=== PATIENT | male | born 1975 | race Caucasian/White ===

== ENCOUNTER → 2019-11-29 08:37 | Outpatient (CLI) | payer BC, SELFPAY ==
--- NOTE | ~2019-11-29 | XR_ITS ---
EXAMINATION: XR UGIAC wo kub EXAM DATE: 11/29/2019 09:16 INDICATION: Severe episodes of abdominal pain in middle of night. TECHNIQUE: Standard single and double contrast barium upper GI examination was performed. Fluoroscop y time 0.6 minutes, with DAP for this procedure was 2.3 Gycm2. There is no prior study for comparis on. FINDINGS: There is no esophageal stricture, diverticulum or mass identified. Small sliding gastroeso phageal hiatal hernia. The stomach has a normal appearance without evidence of mass lesion, ulceration or filling defect. T here is normal rugal fold pattern. The duodenum and duodenal sweep are normal in appearance. IMPRESSION: Small sliding gastroesophageal hiatal hernia. Reviewed, dictated and finalized at location B. OL FUNDRAISING DIRECTOR
== END ==
PROVIDERS: PCP Emergency Medicine; Visit Provider Emergency Medicine
DX: R10.9 Unspecified abdominal pain (principal); K21.9 Gastro-esophageal reflux disease without esophagitis; K44.9 Diaphragmatic hernia without obstruction or gangrene
CPT/HCPCS: 74246

== ENCOUNTER 2022-04-24 10:34 | Emergency (ER) | payer BC, SELFPAY ==
--- NOTE | 2022-04-24 10:37 | ED.URI ---
HPI - URI/Sore Throat General Chief Complaint: Upper Respiratory Infection Stated Complaint: cold/flu Time Seen by Provider: 04/24/22 10:45 Source: patient, RN notes reviewed and old records reviewed Mode of arrival: ambulatory Limitations: no limitations History of Present Illness HPI Narrative: 46-year-old male presents to the [facility] with complaints of sore throat, sinus congestion for 3 days. Reports taking a COVID test at home yesterday and day before, reports negative. Denies fevers. Denies chest pain or abdominal pain. Pertinent past history: asthma Onset (ago): day(s) (3) Consistency: constant Severity: mild Related Data Allergies Allergy/AdvReac Type Severity Reaction Status Date / Time ciprofloxacin [From Cipro] AdvReac Joint Pain Verified 04/24/22 11:00 Review of Systems Review of Systems: All systems reviewed & are unremarkable except as noted in HPI and below Constitutional: Constitutional: Reports no additional constitutional complaints, Denies chills and Denies fever(s) Eyes: Eyes: Reports no additional eye complaints ENT: Reports as per HPI and Reports sore throat Cardiovascular: Cardiovascular: Reports no additional cardiovascular complaints Respiratory: Respiratory: Reports no additional respiratory complaints Gastrointestinal: Gastrointestinal: Reports no additional gastrointestinal complaints Musculoskeletal: Musculoskeletal: Reports no additional musculoskeletal complaints Integumentary/Breasts: Skin/Breast: Reports system reviewed and no additional complaints, except as docu Neurologic: Reports system reviewed and no additional complaints, except as documented Psychiatric: Psychiatric: Reports no additional psychiatric complaints Allergic/Immunologic: Allergic/Immunologic: Reports no additional allergic/immunologic complaints PMFSH Past Medical History Medical History Asthma Finger fracture, left left 5th Hemorrhoid IBS (irritable bowel syndrome) Leg fracture, left Prostatitis Wrist fracture, left Surgical History Surgical History History of appendectomy Social History Social History Gender identity (if verbalized by the patient): Male Comments At the time of my signature, I reviewed and agree with the nursing past medical, surgical, social, and family history. There is no relevant family history pertinent to the patient complaint. Exam Const: General: no acute distress, alert and ill appearing acutely (mild) Nutritional Appearance: well nourished Orientation/consciousness: patient oriented x3 Limitations: no limitations HENMT: Head: normal to inspection Ears: external ears normal General nose exam: Normal external nose present Throat: tonsils normal, uvula midline, posterior oropharynx abnormal erythema; no edema and no exudates and no uvular edema Eyes: General: appearance normal, both eyes and all related structures Pupils: Equal, round and reactive pupils present EOM: EOMs intact bilaterally Neck: Neck: normal visual inspection, no lymphadenopathy and no meningeal signs Chest: Chest palpation & inspection: normal inspection of the chest Resp: Effort & Inspection: normal respiratory effort and no use of accessory muscles Auscultation: clear to auscultation bilaterally, no crackles, no rales, no rhonchi and no wheezes Cardio: Rate: regular rate Rhythm: regular rhythm Back/Spine/Pelvis: Cervical Spine: normal cervical lordosis Thoracic/Lumbar Spine: thoracic and lumbar spine normal to inspection Skin: General skin exam: normal color Rashes: no rashes Wounds: no wounds Neuro: General: patient oriented x3, moves all extremities, no meningeal signs and no focal motor deficits Cranial nerves: Yes Equal, round and reactive pupils present Speech: normal speech Gait exam (Neuro): Normal gait pres
[2022-04-24 10:45] VITALS: BP 116/83; PULSE 73; RESP 16; TEMP 36.9; O2SAT 99
== END 2022-04-24 11:25 | disposition home or self-care (01) ==
PROVIDERS: Emergency Provider Nurse Practitioner; PCP Emergency Medicine
DX: J02.9 Acute pharyngitis, unspecified (principal); Z20.822 Contact with and (suspected) exposure to COVID-19; J45.909 Unspecified asthma, uncomplicated
CPT/HCPCS: 87081; 87426; 87804; 87880; 99213; C9803; G0463

== ENCOUNTER 2022-05-19 19:48 | Emergency (ER) | payer BC, SELFPAY ==
--- NOTE | ~2022-05-19 | CT_ITS ---
EXAMINATION: CT abdomen pelvis wo con DATE: 05/19/2022 21:51 INDICATION: llq pain/left flank pain, hematuria TECHNIQUE: Computed tomography (CT) of the abdomen and pelvis was performed without intravenous contr ast. Automated exposure control and iterative reconstruction technique were employed. The dose-length product was 546.71 mGy-cm. COMPARISON: None. FINDINGS: Lower thorax: Unremarkable Liver: Normal. Biliary/Gallbladder: Cholelithiasis. No bile duct dilation. Pancreas: No mass or duct dilation. Spleen: Normal. Adrenals:No mass. Kidneys: Mild left perinephric stranding and periureteral stranding. Mild left hydronephrosis. GI tract: No small or large bowel dilation. Appendix not visualized. Extensive colonic diverticulosis . Short segment wall thickening and surrounding inflammatory change with an inflamed diverticulum at the junction of the descending colon and sigmoid colon. Mesentery/Peritoneum: No ascites, mass, or free air. Retroperitoneum: No mass. Pelvis: 2 mm distal left ureteral calculus. Mild bladder wall thickening likely on the basis of incom plete distention. Soft Tissues: Soft tissues and body wall unremarkable. Bones: No acute osseous finding. IMPRESSION: Acute uncomplicated diverticulitis. 2 mm distal left ureteral stone causing mild obstructive uropathy . Reviewed, dictated and finalized at location K. IMPRESSION: Acute uncomplicated diverticulitis. 2 mm distal left ureteral stone causing mil d obstructive uropathy.
[2022-05-19 20:05] VITALS: BP 151/93; PULSE 67; RESP 16; TEMP 36.7; O2SAT 100
[2022-05-19 20:17] LABS: Basophils Absolute Auto 0.1 K/mm3 (0.0-0.1); Basophils Percent Auto 0.6 % (0.2-1.2); Eosinophils Absolute Auto 0.7 K/mm3 (0-0.3); Eosinophils Percent Auto 8.3 % (0-4.4); Hematocrit 41.6 % (42.0-52.0); Hemoglobin 13.8 g/dL (14.0-18.0); Immature Granulocyte Absolute 0.02 K/mm3 (0.00-0.031); Immature Granulocyte Percent A 0.2 % (0-0.5); Lymphocytes Absolute Auto 2.78 K/mm3 (0.9-3.2); Lymphocytes Percent Auto 33.6 % (18.3-44.2); Mean Corpuscular HGB Conc 33.2 g/dl (32-36); Mean Corpuscular Hemoglobin 29.5 pg (26-34); Mean Corpuscular Volume 88.9 fl (80-100); Mean Platelet Volume 9.1 fl (7.4-10.4); Monocytes Absolute Auto 0.8 K/mm3 (0.1-0.6); Monocytes Percent Auto 9.1 % (2.6-8.5); Neutrophils Percent Auto 48.2 % (45.5-73.1); Platelet Count Result 270 k/mm3 (150-375); Red Blood Count 4.68 M/mm3 (4.6-6.20); Red Cell Distribution Width 13.1 % (11.5-14.5); White Blood Count 8.3 K/mm3 (4.5-10.0)
[2022-05-19 20:27] LABS: Alanine Aminotransferase 23 U/L (6-50); Albumin Level 4.4 g/dL (3.5-5.1); Alkaline Phosphatase 62 U/L (38-126); Anion Gap 12 mmol/L (8-16); Aspartate Amino Transferase 22 U/L (17-59); Bilirubin,Total 0.5 mg/dL (0.2-1.3); Blood Urea Nitrogen 17 mg/dL (9-20); Carbon Dioxide 24 mmol/L (22-30); Chloride 100 mmol/L (98-107); Estimated CRCL calculation 78 ml/min; Estimated Glomerular Filt Rate > 60; Glucose 116 mg/dL (65-110); Lipase 40 U/L (23-300); Potassium 3.8 mmol/L (3.4-5.0); Sodium 136 mmol/L (137-145)
[2022-05-19 20:49] LABS: Appearance Urine Clear (Clear); Bilirubin Urine Negative (Negative); Blood Urine 2+ (Negative); Color Urine Yellow (Yellow); Glucose Urine UA Negative (Negative); Ketones Urine Negative (Negative); Leukocyte Esterase Ur Negative LEU/UL (Negative); Nitrate Urine Negative (Negative); Protein Urine Negative (Negative); Urobilinogen Urine 0.2 mg/dL (<2.0)
[2022-05-19 20:52] LABS: Mucus Urine Rare /lpf; RBC Urine >75 /hpf (0-2); Squamous Epithelial Cell Urine Rare /hpf (Few); WBC Urine 0-3 /hpf
[2022-05-19 20:55] LABS: Add Urine Microscopic? YES
--- NOTE | 2022-05-19 21:43 | ED.ABDPAIN ---
HPI - Abdominal Pain General Chief Complaint: Abdominal Pain Stated Complaint: ABD pain on left side Time Seen by Provider: 05/19/22 21:32 History of Present Illness HPI narrative: Patient is a 43-year-old male w/ history of IBS, prostatitis here for evaluation of left sided abdominal pain for the past day. Patient states the pain is intermittent in nature, is severe, and he denies any known provoking factors. States when the pain is there, it is hard to find a comfortable position, and it takes his breath away. Pain began in his left flank and is now on his left lower abdomen. He had 2 episodes of vomiting nonbloody/nonbilious emesis, but denies any constipation. Also notes 2 loose stools today that were nonbloody and some blood in his urine. Denies fevers, chills, dysuria, urgency, chest pain or shortness of breath. Related Data Allergies Allergy/AdvReac Type Severity Reaction Status Date / Time ciprofloxacin [From Cipro] AdvReac Joint Pain Verified 05/19/22 21:34 Review of Systems Review of Systems: Gen.: Denies fevers or chills Eyes: Denies eye pain or visual change ENT: Denies congestion Respiratory: Denies shortness of breath or cough CV: Denies chest pain or palpitations GI: Reports left lower quadrant abdominal pain, nausea and vomiting. reports hematuria. Denies burning, urgency, frequency Musculoskeletal: Denies back pain or muscle pain Neuro: Denies numbness, tingling, weakness or focal weakness Skin: Denies rash Except as documented, all other systems reviewed and negative PMFSH Past Medical History Medical History Asthma Finger fracture, left left 5th Hemorrhoid IBS (irritable bowel syndrome) Leg fracture, left Prostatitis Wrist fracture, left Surgical History Surgical History History of appendectomy Social History Social History Gender identity (if verbalized by the patient): Male Exam Narrative: APPEARANCE: Well appearing, no pain in distress, well-nourished. Head: Normocephalic and atraumatic. EYES: PERRLA/EOMI, conjunctivae clear NOSE: No nasal drainage EARS: External ear normal in appearance THROAT: Oropharynx is clear. Mucous membranes are moist. NECK: Supple. No adenopathy, no masses. RESPIRATORY: Airway patent, respirations nonlabored. Clear to auscultation bilaterally, no rales, rhonchi, wheezing. CARDIOVASCULAR: Regular rate and rhythm without murmurs, rubs, or gallops. ABDOMINAL: mildly tender to palpation in LLQ. No CVA tenderness. Normoactive bowel sounds. Soft, nondistended. No rebound tenderness or guarding. MUSCULOSKELETAL: Extremities are warm and well-perfused. Moves all extremities well. No edema. NEURO: Normal speech. No focal neurologic deficits. SKIN: Skin is warm and dry. No rashes. PSYCHIATRIC: Normal affect/mood.. Course Vital Signs Vital signs: Vital Signs Temperature 98.1 F 05/19/22 20:05 Pulse Rate 67 05/19/22 20:05 Respiratory Rate 16 05/19/22 20:05 Blood Pressure 151/93 H 05/19/22 20:05 Pulse Oximetry 100 05/19/22 20:05 Oxygen Delivery Room Air 05/19/22 20:05 Temperature 98.1 F 05/19/22 20:05 Pulse Rate 68 05/19/22 22:36 Respiratory Rate 18 05/19/22 22:36 Blood Pressure 142/88 H 05/19/22 22:36 Pulse Oximetry 96 05/19/22 22:36 Oxygen Delivery Room Air 05/19/22 20:05 MDM - Abdominal Pain MDM Narrative Medical decision making narrative: 46-year-old male here for evaluation of left lower quadrant abdominal pain, nausea and vomiting over the past day. Here, he is slightly hypertensive, likely due to pain, vital signs otherwise normal. He is moderately tender in the left lower quadrant. Work-up significant for hematuria. No leukocytosis or elevated kidney function. CT scan with evidence of uncomplicated diverticulitis in addition
[2022-05-19] MEDS: MORPHINE SULFATE (*CRX) 4 MG/ML INJ IV PUSH (22:09)
[2022-05-19] MEDS: ONDANSETRON INJ 4 MG/2 ML VIAL IV PUSH (22:09)
[2022-05-19 22:36] VITALS: BP 142/88; PULSE 68; RESP 18; O2SAT 96
== END 2022-05-19 22:38 | disposition home or self-care (01) ==
PROVIDERS: Emergency Provider Emergency Medicine; PCP Emergency Medicine
DX: K57.92 Diverticulitis of intestine, part unspecified, without perforation or abscess without bleeding (principal); N13.2 Hydronephrosis with renal and ureteral calculous obstruction; J45.909 Unspecified asthma, uncomplicated; K58.9 Irritable bowel syndrome, unspecified; N41.9 Inflammatory disease of prostate, unspecified
CPT/HCPCS: 36415; 74176; 80053; 81001; 83690; 85025; 96374; 96375; 99284; J2270; J2405

== ENCOUNTER → 2023-01-07 07:47 | Outpatient (CLI) | payer BC, SELFPAY ==
--- NOTE | ~2023-01-07 | US_ITS ---
Limited Abdominal Sonogram: Real-time sonographic imaging of the right upper quadrant was performed. Clinical History: Right upper quadrant pain Findings: The liver appears normal with no evidence of mass lesion or bile duct dilatation. Main por adam vein demonstrates normal direction of flow. The gallbladder is well distended, and contains multi ple echogenic, shadowing gallstones. No definite gallbladder wall thickening. Questionable stone in t he gallbladder neck versus possibly even the common bile duct. Visualized aorta is unremarkable. Panc reas obscured by bowel gas shadowing. Right kidney measures 10.1 cm in length, without evidence for h ydronephrosis. Impression: Cholelithiasis. Possible stone at the gallbladder neck versus in the common bile duct. Consider MRCP and/or HIDA scan as indicated for further evaluation. Reviewed, dictated and finalized at [facility]. Impression: Cholelithiasis. Possible stone at the gallbladder neck versus in the common jelani e duct. Consider MRCP and/or HIDA scan as indicated for further evaluation.
== END ==
PROVIDERS: PCP Nurse Practitioner Family; Visit Provider Nurse Practitioner Family
DX: R10.11 Right upper quadrant pain (principal)
CPT/HCPCS: 76705

== ENCOUNTER 2025-09-07 13:32 | Outpatient (CLI) | payer BC, SELFPAY ==
--- NOTE | ~2025-09-07 | CT_ITS ---
EXAMINATION: CT abdomen pelvis wo/w con DATE: 09/07/2025 14:12 INDICATION: Prostatitis TECHNIQUE: Computed tomography (CT) of the abdomen and pelvis was performed without intravenous contrast. CT of the abdomen and pelvis was then performed with a total of 130 mL Omnipaque-350 intravenous contrast using a double-bolus technique for simultaneous opacification of the renal parenchyma and renal collecting system. Automated exposure control and iterative reconstruction technique were employed. The dose-length product was 1942.92 mGy-cm. COMPARISON: None FINDINGS: Lung bases are clear. Heart size is normal. No pericardial or pleural effusion. Cholecystectomy clips at the gallbladder fossa. Liver, spleen, pancreas, bilateral adrenal glands are normal. There are couple nonobstructing 1-2 stones in the right kidney. No stones at the left kidney or along the bilateral ureters. Kidneys enhance symmetrically. Contrast opacifies the entirety of the bilateral renal collecting systems and ureters with no urothelial irregularities. Bladder is normal. Prostate is unremarkable measuring 3.7 x 3.2 cm. Moderate diverticulosis along the descending and sigmoid colon without adjacent from trace stranding to suggest diverticulitis. No bowel obstruction. The appendix is not visualized. No pericecal inflammatory change to suggest acute appendicitis. No free intraperitoneal gas or fluid. No pathologically enlarged abdominal or pelvic lymphadenopathy. Chronic appearing mild anterior wedging at T8 and T9. Moderate lower thoracic and mild lumbar spondylosis. IMPRESSION: 1. No acute intra-abdominal/pelvic process. 2. Couple nonobstructing 1 mm right renal stones. 3. Diverticulosis. Reviewed, dictated and finalized at location A. RONMENTAL ASSISTANT
== END 2025-09-07 13:33 | disposition home or self-care (01) ==
LOC: MICIMG 13:33
PROVIDERS: PCP Nurse Practitioner Family; Visit Provider Physician Assistant
DX: N41.9 Inflammatory disease of prostate, unspecified (principal); N20.0 Calculus of kidney; K57.30 Diverticulosis of large intestine without perforation or abscess without bleeding
CPT/HCPCS: 74178; Q9967

== ENCOUNTER 2025-09-11 09:37 | Emergency (ER) | payer BC, SELFPAY ==
[2025-09-11] VITALS (15 sets, daily range): BP systolic 127–128; BP diastolic 72–93; PULSE 64–172; RESP 13–20; O2SAT 97–100
--- NOTE | ~2025-09-11 | XR_ITS ---
Examination: XR chest 2V Clinical History: Tachycardia, ASTHMA Comparison: None Technique: PA and Lateral Findings: Cardiomediastinal silhouette normal size and configuration. Lungs clear. No acute bony abnormality. IMPRESSION: 1. No acute cardiopulmonary findings. Reviewed, dictated and finalized at location [facility]. [facility]
--- NOTE | 2025-09-11 09:43 | ECG_ITS ---
Test Date: 2025-09-11 09:44:48 Measurements Intervals [place] Rate: 151 P: 0 ME: 0 QRS: 25 QRSD: 128 T: -15 QT: 292 QTc: 464 Interpretive Statements ATRIAL FIBRILLATION WITH RAPID VENTRICULAR RESPONSE RIGHT BUNDLE BRANCH BLOCK [120+ ms QRS DURATION, UPRIGHT V1, 40+ ms S IN ABNORMAL ECG * No previous ECG available for comparison Electronically Signed On 09-11-2025 17:25:24 COMBINED RAIL OPERATOR by Ernie Yousif M.D.
--- NOTE | 2025-09-11 09:55 | ED.GENADULT ---
HPI - General Adult General Chief complaint: Arrhythmia/Palpitations Stated complaint: palpitations since 0200. Dizzy. SOB Time Seen by Provider: 09/11/25 09:38 History of Present Illness HPI narrative: 50-year-old male presented emergency department for evaluation for rapid heart rate that started about 2:00 a.m. in the morning. Patient denies any prior diagnosis of AFib. Patient states he has had intermittent periods of rapid heart rate but nothing lasting. Patient woke up at 2:00 a.m. to take care of his 2-year-old child and had onset of rapid heart rate with associated dizziness and lightheadedness. Patient states symptoms were persistent until he arrived to the emergency department. Upon arrival emergency department patient heart rate was AFib and fluctuating between 150s and 170s. Patient did convert back to normal sinus rhythm shortly after arrival to the emergency department. At time of initial evaluation patient was back in normal sinus rhythm with a heart rate in the mid 80s. Patient states that his symptoms had resolved at that time. Patient denies alcohol consumption. Patient states he does drink a couple of cups of coffee a day but denies any excessive caffeine intake. Related Data Allergies Allergy/AdvReac Type Severity Reaction Status Date / Time ciprofloxacin (From Cipro) AdvReac Joint Pain Verified 09/11/25 09:50 Review of Systems Review of Systems: All systems reviewed & are unremarkable except as noted in HPI and below PMFSH Past Medical History Medical History Asthma Finger fracture, left left 5th Hemorrhoid IBS (irritable bowel syndrome) Leg fracture, left Prostatitis Wrist fracture, left Surgical History Surgical History History of appendectomy Social History Social History Gender identity (if verbalized by the patient): Male Exam Narrative: APPEARANCE: Well appearing, no pain, no distress, well-nourished. HEAD: normocephalic, atraumatic. EYES: PERRLA/EOMI, conjunctivae clear. NOSE: Normal no drainage EARS:TMS clear with good light reflex. THROAT: Pharynx clear, no exudate. NECK: Supple. No adenopathy, no masses. RESPIRATORY: Airway patent, respirations nonlabored. Clear to auscultation bilaterally, no rales, rhonchi, wheezing. CARDIOVASCULAR: Regular rate and rhythm without murmurs rubs or gallops. ABDOMINAL: Soft, nontender, nondistended, normal bowel sounds MUSCULOSKELETAL: Moves all extremities. Strength/ROM intact, No edema, No calf tenderness. NEURO: Alert. Cranial nerves II through XII intact. Good gait. Good coordination SKIN: Warm, dry. Normal Color Course Vital Signs Vital signs: Vital Signs Pulse Rate 164 H 09/11/25 09:44 Respiratory Rate 20 09/11/25 09:44 Blood Pressure 128/72 09/11/25 09:44 Pulse Oximetry 99 09/11/25 09:44 Oxygen Delivery Room Air 09/11/25 09:44 Pulse Rate 66 09/11/25 12:45 Respiratory Rate 13 09/11/25 12:45 Blood Pressure 127/93 H 09/11/25 12:45 Pulse Oximetry 98 09/11/25 12:45 Oxygen Delivery Room Air 09/11/25 09:44 Medical Decision Making MDM Narrative Medical decision making narrative: 50-year-old male presenting to the emergency department for evaluation after having episode of tachycardia at home. Patient arrived to the emergency department and atrial fibrillation but did convert back to to normal sinus rhythm. Patient is currently afebrile with no leukocytosis and a stable hemoglobin of 15.7. INR is 1.0. Patient has no significant acute abnormalities on his CMP including a normal potassium. X-ray shows no acute cardiopulmonary abnormality. EKG obtained after conversion back to normal sinus rhythm did confirm normal sinus rhythm. Patient does have a left bundle-branch block with no previous EKGs on file. Patient was advised to decrease his caffeine intake increase water intake and to continue to avoid alcohol. Patient was provided a Holter monitor. Patient states he does have close follow-up with his primary care physician and he was encouraged to schedule follow-up. Patient was also educated on reasons to return to the emergency department. All questions concerns were addressed. Differential Diagnosis Differential Diagnosis: SVT, AFib, tachycardia Vital Signs Vital Signs: Vital Signs Pulse Rate 164 H 09/11/25 09:44 Respiratory Rate 20 09/11/25 09:44 Blood Pressure 128/72 09/11/25 09:44 Pulse Oximetry 99 09/11/25 09:44 Oxygen Delivery Room Air 09/11/25 09:44 Pulse Rate 66 09/11/25 12:45 Respiratory Rate 13 09/11/25 12:45 Blood Pressure 127/93 H 09/11/25 12:45 Pulse Oximetry 98 09/11/25 12:45 Oxygen Delivery Room Air 09/11/25 09:44 Lab Data Lab results reviewed: Yes I reviewed the patient's lab results. 09/11/25 09:49 09/11/25 09:49 Labs: Lab Results 09/11/25 Range/Units 09:49 WBC 7.1 (4.5-10.0) K/mm3 RBC 5.34 (4.6-6.20) M/mm3 Hgb 15.7 (14.0-18.0) g/dL Hct 47.7 (42.0-52.0) % MCV 89.3 (80-100) fl MCH 29.4 (26-34) pg MCHC 32.9 (32-36) g/dl RDW 13.2 (11.5-14.5) % Plt Count 245 (150-375) k/mm3 MPV 9.0 (7.4-10.4) fl Immature Gran % (Auto) 0.1 (0-0.5) % Neut % (Auto) 61.1 (45.5-73.1) % Lymph % (Auto) 25.4 (18.3-44.2) % [place] % (Auto) 8.2 (2.6-8.5) % Eos % (Auto) 4.8 H (0-4.4) % Baso % (Auto) 0.4 (0.2-1.2) % Lymph # (Auto) 1.80 (0.9-3.2) K/mm3 [place] # (Auto) 0.6 (0.1-0.6) K/mm3 Eos # (Auto) 0.3 (0-0.3) K/mm3 Baso # (Auto) 0.0 (0.0-0.1) K/mm3 Abs Immat Gran (auto) 0.01 (0.00-0.031) K/mm3 Absolute Neuts (auto) 4.3 (1.3-6.7) K/mm3 Absolute Nucleated RBC 0.000 (0.0-0.012) K/mm3 Nucleated RBC % 0.0 (0.0-0.2) % PT 12.9 (11.1-14.7) Seconds INR 1.0 APTT 26.3 (22.3-36.8) Seconds Sodium 139 (137-145) mmol/L Potassium 4.0 (3.4-5.0) mmol/L Chloride 105 (98-107) mmol/L Carbon Dioxide 27 (22-30) mmol/L Anion Gap 7 (4-12) mmol/L BUN 14 (9-20) mg/dL Creatinine 0.99 (0.7-1.3) mg/dL Estim Creat Clear Calc 89 ml/min Estimated GFR > 60 (59 - ) Glucose 127 H (65-110) mg/dL Calcium 8.9 (8.4-10.2) mg/dL Total Bilirubin 0.5 (0.2-1.3) mg/dL AST 34 (17-59) U/L ALT 30 (6-50) U/L Alkaline Phosphatase 54 (38-126) U/L Total Protein 7.4 (6.3-8.2) g/dL Albumin 4.3 (3.5-5.1) g/dL Imaging Data Radiologist's impression: Impressions Chest X-Ray 09/11/25 10:12 IMPRESSION: 1. No acute cardiopulmonary findings. Discharge Plan Discharge Clinical Impression: Atrial fibrillation Patient Disposition: Home Condition: Stable Instructions: Antibiotic Form Additional Instructions: Drink plenty of water, decrease your caffeine intake. Follow a well-balanced diet. Holter monitor as directed. Have close follow-up with your primary care physician. Patient Language: Croatian Prescriptions: No Action amoxicillin-pot clavulanate 875-125 mg tablet 1 tablet PO Q12H Qty: 14 0RF Follow-up/Referrals: Naomie,Mana Hastings APRN [Primary Care Provider, Unknown]
[2025-09-11 10:01] LABS: Hematocrit 47.7 % (42.0-52.0); Hemoglobin 15.7 g/dL (14.0-18.0); Immature Granulocyte Percent A 0.1 % (0-0.5); Lymphocytes Absolute Auto 1.80 K/mm3 (0.9-3.2); Mean Corpuscular HGB Conc 32.9 g/dl (32-36); Mean Corpuscular Hemoglobin 29.4 pg (26-34); Mean Corpuscular Volume 89.3 fl (80-100); Nucleated Red Blood Cells Absolute Auto 0.000 K/mm3 (0.0-0.012); Nucleated Red Blood Cells Perc 0.0 % (0.0-0.2); Platelet Count Result 245 k/mm3 (150-375); Red Blood Count 5.34 M/mm3 (4.6-6.20); White Blood Count 7.1 K/mm3 (4.5-10.0)
[2025-09-11 10:20] LABS: INR 1.0; Prothrombin Time 12.9 Seconds (11.1-14.7)
[2025-09-11 10:21] LABS: Alanine Aminotransferase 30 U/L (6-50); Albumin Level 4.3 g/dL (3.5-5.1); Alkaline Phosphatase 54 U/L (38-126); Anion Gap 7 mmol/L (4-12); Aspartate Amino Transferase 34 U/L (17-59); Bilirubin,Total 0.5 mg/dL (0.2-1.3); Blood Urea Nitrogen 14 mg/dL (9-20); Calcium 8.9 mg/dL (8.4-10.2); Carbon Dioxide 27 mmol/L (22-30); Chloride 105 mmol/L (98-107); Estimated CRCL calculation 89 ml/min; Estimated Glomerular Filt Rate > 60; Glucose 127 mg/dL (65-110); Partial Thromboplastin Time 26.3 Seconds (22.3-36.8); Potassium 4.0 mmol/L (3.4-5.0); Sodium 139 mmol/L (137-145); Total Protein 7.4 g/dL (6.3-8.2)
--- OUTSIDE RECORDS SUMMARY | 2025-09-11 10:31 | XMS_ITS | Encounter Summary ---
Author Organization 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 Name Role Phone Dami Moore MD Primary Care Provider [phone] Mana Akbar NP Primary Care Provider [phone] Encounter Details Date Type Department Care Team (Late st Contact Info) Description 09/23/2018 Telephone [place] [facility] ([facility]) - [facility] Medicine Urology [address] [place] [address] Advanced Medicine 11th [place] [address] [place] [address] Oksana Arambula Social History Tobacco Use Types Packs/Day Years Used Date Smoking Tobacco: Never Sex and Gender Information Value Date Recorded Sex Assigned at Not on file 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 Gender Identity Not on file Sexual Orientation Not on file documented as of this encounter Functional Status * BP Location Answer Date of Assessment Author Right arm 09/23/2018 9:32 AM Sachin Leon RMA * BP Location Answer Date of Assessment Author Right arm 09/23/2018 9:32 AM Sachin Leon RMA documented as of this encounter Plan of Treatment Not on file documented as of this encounter Visit Diagnoses Not on filedocumented in this encounter Care Teams Scrap Metal Burner Relationship Specialty Start Date End Date Dami Moore MD PCP - General Family Medicine 09/22/18 12/29/22 Mana Akbar NP [address] [address] PCP - General Family Medicine 12/30/22 documented as of this encounter
--- OUTSIDE RECORDS SUMMARY | 2025-09-11 10:31 | XMS_ITS | Encounter Summary ---
Author Organization [facility] Healthcare Address [address] [place] [address] Care Team Providers Care Alterations Workroom Clerk Name Role Phone Mana Akbar NP Primary Care Provider [phone] Reason for Visit * Reason Onset Date Comments Rapid Heart Rate 09/11/2025 Encounter Details Date Type Department Care Team (Late st Contact Info) Description 09/11/2025 Nurse Triage [facility] Medical Group Primary Care at [address] [address] Mana Akbar NP [address] [place] [address] [address] [place] [address] Social History Tobacco Use Types Packs/Day Years Used Date Smoking Tobacco: Never Passive Smoke Exposure: Never Smokeless Tobacco: Never Alcohol Use Standard Drinks/Week Comments No 0 (1 standard drink = 0.6 oz pur e alcohol) AUDIT-C Answer Date Recorded Q1: How often do you have a drink containing alc ohol? 2-4 times a month 03/01/2023 Q2: How many drinks containi ng alcohol do you have on a typical day when you are drinking? 5 or 6 03/01/2023 Q3: How often do you have si x or more drinks on one occasion? Monthly 03/01/2023 PHQ-2 Answer Date Recorded PHQ-2 Total Score (If total score is 3 or more points, staff should administer the PHQ-9) 0 07/04/2025 Personal Safety Answer Date Recorded Have you ever been in or are you currently in a harmful physical or emotional relationship or is someone making you feel afraid or unsafe? Denies 03/01/2023 Sex and Gender Information Value Date Recorded Sex Assigned at Not on file Legal Sex Male 6:44 AM DIGITAL LIBRARIAN Gender Identity Not on file Sexual Orientation Not on file documented as of this encounter Miscellaneous Notes * Telephone Encounter - Eliu Scott RN - 09/11/2025 9:03 AM CST Reason for Conversation Rapid Heart Rate Background Patient reports fluttering sensation in chest starting this early this morning per Exarahart message,symptoms continue. EKG rhythm on smart watch alerting to afib, rate varies from 80-150's. [id number] at time of call. Patient has been feeling lightheaded, symptoms worse with activity. Patient denies sob at time of call but noted being out of breath in my chart message earlier today. RN advised patient to be seen in ER. Patients spouse with drive him to [place] ER now. Routed as FYI due toER disposition. Disposition Go to ED Now Reason for Disposition Feeling weak or lightheaded (e.g., woozy, feeling like they might faint) Protocols Used Heart Rate and Heartbeat [id number]-Fzfip-BV TAL LIBRARIAN * Telephone Encounter - Eliu Scott RN - 09/11/2025 8:57 AM CST Regarding: fluttering Heart Beat ----- Message from fabroomse VaxInnate sent at 09/11/2025 8:54 AM DIGITAL LIBRARIAN ----- Symptom Based Call Chief Complaint(s): fluttering Heart Beat Duration: Since 2:45 am today What type of symptom(s) is the patient experiencing? Red Flag. Is the patient concerned they are experiencing a medical emergency requiring an ambulance? No Additional Comments: Per patients message to providers office, Mana, I was woken up by Simon last night at around 2:45 AM. After we put him back to sleep I went to the bathroom and my chest was fluttering and I had to kind of sit down since around that time. Since then i continue to have what my watch ekg merlin says is atrial fibrillation. The watch said my heart rate is 150. my chest doesn't hurt or anything, but it's uncomfortable and feels weird and it's very easy for me to get out of breath or a little dizzy. I was able to sleep since about 4:15 and so it persisted even after being asleep for several hours.. is there anything I should be doing? Patient seeking clinical advice and further instructions, please. Does message need to be routed? Yes-Action Needed TAL LIBRARIAN documented in this encounter Plan of Treatment Not on file documented as of this encounter Visit Diagnoses Not on filedocumented in this encounter Care Teams Alterations Workroom Clerk Relationship Specialty Start Date End Date Mana Akbar NP [address] [address] PCP - General Family Medicine 12/30/22 documented as of this encounter
--- OUTSIDE RECORDS SUMMARY | 2025-09-11 10:31 | XMS_ITS | Clinical Summary ---
Author Organization [facility] [address] [place] [address] [place] [id number] Care Team Providers Care Glassware Verifier Name Role Phone Unavailable Primary Care Provider Unavailabl e Allergies Active Allergy Reactions Criticality Noted Date Comments Ciprofloxacin Other (See Comments) 12/27/2013 C/o tired, anxious, headache, and Tendon bursting side effects of Cipro scared pt. Medications bifidobacterium infantis (ALIGN) 4 mg CapsuleIndicatio ns:Antibiotic long-term use Take 1 Each by mouth daily. 30 Cap 0 12/27/2013 Active sulfamethoxazole -trimethoprim (BACTRIM DS) 800-160 mg tabletIndication s:Prostatitis Take 1 Tab by mouth 2 times daily. Take for 23 days until gone. 46 Tab 0 12/28/2013 Active Active Problems Problem Noted Date Diagnosed Date Asthma 12/22/2013 Asthma 12/22/2013 Social History Tobacco Use Types Packs/Day Years Used Date Smoking Tobacco: Never Smokeless Tobacco: Never Alcohol Use Standard Drinks/Week Comments Not Asked 0 (1 standard drink = 0.6 oz pur e alcohol) Sex and Gender Information Value Date Recorded Sex Assigned at Not on file Legal Sex Male 5:51 PM KARATE TEACHER Gender Identity Not on file Sexual Orientation Not on file Last Filed Vital Signs Vital Sign Reading Time Taken Comments Blood Pressure 108/74 12/22/2013 6:26 PM KARATE TEACHER Pulse 84 12/22/2013 6:26 PM KARATE TEACHER Temperature 36.7 C (98.1 F) 12/22/2013 6:26 PM KARATE TEACHER Respiratory Rate - - Oxygen Saturation 96% 12/22/2013 6:26 PM KARATE TEACHER Inhaled Oxygen Concentration - - Weight 90.3 kg (199 lb) 12/22/2013 6:26 PM KARATE TEACHER Height 172.7 cm (5' 8) 12/22/2013 6:26 PM KARATE TEACHER Body Mass Index 30.26 12/22/2013 6:26 PM KARATE TEACHER Plan of Treatment Health Maintenance Due Date Last Done Comments DTAP/TDAP/TD VACCINES (1 - Tdap) 1996 HEPATITIS B VACCINES (1 of 3 - 19+ 3-dose series) 05/1996 COLORECTAL SCREENING 2022 Colorectal Cancer Screening 2022 FIT-DNA Q 3 years 2022 FIT/FOBT Q 1 year 2022 Flex Sig/CT Colonography Q 5 years 2022 INFLUENZA VACCINE (#1) 2025 Insurance #[address] BLUE ACCESS CHOICE #1 [place] [id number]
--- OUTSIDE RECORDS SUMMARY | 2025-09-11 10:31 | XMS_ITS | Encounter Summary ---
Author Organization [facility] Healthcare Address [address] [place] [address] Care Team Providers Care Supervisor Porcelain Department Name Role Phone Mana Akbar TOW MOTOR MECHANIC Primary Care Provider Encounter Details Date Type Department Care Team (Latest Contact Info) Description 08/20/2025 Results Follow-Up [facility] Medical Group Primary Care at [address] [address] Mana Akbar, TOW MOTOR MECHANIC [address] [place] [address] [address] [place] [address] Comprehensive metabolic panel, CBC with auto differential, Lipid panel, Additional followed-up results: 2 Social History Tobacco Use Types Packs/Day Years [...] on file Legal Sex Male 6:44 AM BERRY GROWER Gender Identity Not on file Sexual Orientation Not on file documented as of this encounter Plan of Treatment Not on file documented as of this encounter Visit Diagnoses Not on filedocumented in this encounter Care Teams Supervisor Porcelain Department Relationship Specialty Start Date End Date Mana Akbar NP [address] [facility] [address] [place] [address] PCP - General Family Medicine 12/30/22 documented as of this encounter
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
[2025-09-11] MEDS: LACTATED RINGERS 1,000 ML 999 ML IV CONT (10:42)
--- NOTE | 2025-09-11 12:17 | ECG_ITS ---
Test Date: 2025-09-11 09:48:29 Measurements Intervals [place] Rate: 84 P: 39 CO: 139 QRS: 16 QRSD: 141 T: 2 QT: 363 QTc: 431 Interpretive Statements SINUS RHYTHM RIGHT BUNDLE BRANCH BLOCK [120+ ms QRS DURATION, UPRIGHT V1, 40+ ms S IN I/aVL/V4/V5/V6] ABNORMAL ECG Compared to ECG 09/11/2025 09:44:48 Atrial fibrillation no longer present Electronically Signed On 09-11-2025 17:25:36 FACILITIES PAINTER by Ernie Yousif M.D.
--- NOTE | 2025-09-27 15:51 | P.PCNHOL_ITS ---
Holter/Event Monitor Holter/Event Monitor Date of procedure: 09/11/25 Holter/Event Procedure: 3-7 Day Holter Monitor Indications: PAF Conclusion: 1. 7 days holter monitor on 09/11/25. 2. Underlying rhythm is sinus rhythm. HR range 49-152 bpm. HR at 152 bpm was on 09/15/25 at 10:22 am. 3. There are rare premature supraventricular complexes and rare supraventricular couplets. No supraventricular tachycardia. 4. There are rare premature ventricular complexes. No ventricular tachycardia. 5. No significant pauses greater than 3 seconds. 6. Patinet reports 1 episode of heavy heart beats which demonstrates sinus rhy thm at 94 bpm.
== END 2025-09-11 13:03 | disposition home or self-care (01) ==
PROVIDERS: Emergency Provider Emergency Medicine; PCP Nurse Practitioner Family
DX: I48.91 Unspecified atrial fibrillation (principal); J45.909 Unspecified asthma, uncomplicated; K58.9 Irritable bowel syndrome, unspecified; I45.10 Unspecified right bundle-branch block
CPT/HCPCS: 36415; 71046; 80053; 85025; 85610; 85730; 93005; 93242; 99284; J7120